=== PATIENT | female | born 1955 | race Hispanic/Latino ===

== ENCOUNTER → 2017-02-26 | Outpatient (CLI) | payer MEDICARE ==
[~2017-02-26] MED LIST: GADOBENATE DIMEGLUMINE 20 ML IV ONE; INUL1TAB4 PO; LEVO25TA54 PO; MULT-1192 PO
== END | disposition home or self-care (01) ==
LOC: RAH 07:59
PROVIDERS: ATTEND Family Medicine
DX: M48.02 Spinal stenosis, cervical region (principal); M50.022 Cervical disc disorder at C5-C6 level with myelopathy; M25.78 Osteophyte, vertebrae
CPT/HCPCS: 72156; A9577

== ENCOUNTER → 2017-06-23 | Outpatient (CLI) | payer MEDICARE ==
[~2017-06-23] MED LIST changes: -GADOBENATE DIMEGLUMINE 20 ML IV ONE
== END | disposition home or self-care (01) ==
LOC: RAH 14:59
PROVIDERS: ATTEND Family Medicine
DX: Z12.31 Encounter for screening mammogram for malignant neoplasm of breast (principal)
CPT/HCPCS: 77067

== ENCOUNTER → 2017-07-29 | Outpatient (CLI) | payer MEDICARE | END | disposition home or self-care (01) | LOC: RAH 11:51 | PROVIDERS: ATTEND Family Medicine | DX: M47.815 Spondylosis without myelopathy or radiculopathy, thoracolumbar region (principal); R91.8 Other nonspecific abnormal finding of lung field; I51.7 Cardiomegaly | CPT/HCPCS: 71046 ==

== ENCOUNTER → 2018-06-24 | Outpatient (CLI) | payer MEDICARE | END | disposition home or self-care (01) | LOC: RAH 09:24 | PROVIDERS: ATTEND Family Medicine | DX: Z12.31 Encounter for screening mammogram for malignant neoplasm of breast (principal) | CPT/HCPCS: 77067 ==

== ENCOUNTER → 2018-09-19 | Outpatient (CLI) | payer MEDICARE | END | disposition home or self-care (01) | LOC: RAH 11:27 | PROVIDERS: ATTEND Family Medicine | DX: M17.11 Unilateral primary osteoarthritis, right knee (principal) | CPT/HCPCS: 73560 ==

== ENCOUNTER → 2020-07-01 | Outpatient (CLI) | payer MEDICARE, OTHER | END | disposition home or self-care (01) | LOC: RAH 11:54 | PROVIDERS: ATTEND Family Medicine | DX: Z12.31 Encounter for screening mammogram for malignant neoplasm of breast (principal) | CPT/HCPCS: 77067 ==

== ENCOUNTER → 2021-07-02 | Outpatient (CLI) | payer MEDICARE | END | disposition home or self-care (01) | LOC: RAH 10:21 | PROVIDERS: ATTEND Family Medicine | DX: Z12.31 Encounter for screening mammogram for malignant neoplasm of breast (principal) | CPT/HCPCS: 77067 ==

== ENCOUNTER → 2022-05-07 | Outpatient (CLI) | payer MEDICARE | END | disposition home or self-care (01) | LOC: SHCH 10:33 | PROVIDERS: ATTEND Student in an Organized Health Care Education/Training Program | DX: R06.02 Shortness of breath (principal) | CPT/HCPCS: 93306 ==

== ENCOUNTER → 2022-05-26 | Outpatient (CLI) | payer MEDICARE ==
[2022-05-26 15:04] LABS: ALBUMIN 3.9 g/dL (3.5-5.0); CREATININE 0.8 mg/dL (0.5-1.5); POTASSIUM 4.1 mmol/L (3.5-5.1)
== END | disposition home or self-care (01) ==
LOC: LAB 14:09
PROVIDERS: ATTEND Student in an Organized Health Care Education/Training Program
DX: R06.09 Other forms of dyspnea (principal)
CPT/HCPCS: 36415; 80053

== ENCOUNTER → 2022-06-01 | Outpatient (CLI) | payer MEDICARE ==
[~2022-06-01] MED LIST changes: +IOHEXOL 350 MG/ML 100ML INFUS..BTL IV ONE; +METOPROLOL TARTRATE 1 MG/ML 5ML VIAL IV ONE
== END | disposition home or self-care (01) ==
LOC: RAH 10:38
PROVIDERS: ATTEND Student in an Organized Health Care Education/Training Program
DX: I50.9 Heart failure, unspecified (principal)
CPT/HCPCS: 75574; J3490; Q9967

== ENCOUNTER → 2022-07-03 | Outpatient (CLI) | payer MEDICARE ==
[~2022-07-03] MED LIST changes: -IOHEXOL 350 MG/ML 100ML INFUS..BTL IV ONE; -METOPROLOL TARTRATE 1 MG/ML 5ML VIAL IV ONE
== END | disposition home or self-care (01) ==
LOC: RAH 08:25
PROVIDERS: ATTEND Physician Assistant Medical
DX: Z12.31 Encounter for screening mammogram for malignant neoplasm of breast (principal)
CPT/HCPCS: 77067

== ENCOUNTER → 2023-07-05 | Outpatient (CLI) | payer MEDICARE | END | disposition home or self-care (01) | LOC: RAH 13:18 | PROVIDERS: ATTEND Physician Assistant Medical | DX: Z12.31 Encounter for screening mammogram for malignant neoplasm of breast (principal); R92.323 Mammographic fibroglandular density, bilateral breasts | CPT/HCPCS: 77067 ==

== ENCOUNTER → 2024-05-10 | Outpatient (CLI) | payer MEDICARE ==
--- NOTE | 2024-05-10 14:30 | HMCIMG ---
MRI RIGHT KNEE WITHOUT CONTRAST INDICATION: Right knee pain. COMPARISON: None. TECHNIQUE: Long and short axis fat and water weighted sequences were obtained through the right knee. FINDINGS: 2.0 cm long complex trizonal high signal abnormality courses through the medial meniscal body, and medial meniscal insufficiency-related full-thickness chondral loss noted along the weightbearing surfaces of the medial femoral condyle with sparing far laterally. No significant subchondral erosion formation at this juncture. Pseudoextrusion of the medial meniscal body contributing to mild medial bowing of an otherwise intact medial collateral ligament. All of these findings may be due to chronic repetitive varus stress. No evidence for subcortical fracture at this juncture. Lateral meniscus is intact. No significant lateral femorotibial weightbearing chondromalacia. Cruciate ligaments are intact. Collateral ligaments appear unremarkable. Popliteus tendon is well maintained. Moderate tricompartmental right knee osteoarthropathy includes and moderate to severe medial compartment joint space narrowing, remodeling and related flattening of the and medial femoral condylar weightbearing surface, remodeling of the remainder of the articular surfaces, mild medial shift of the right femur in relationship to the right tibia by a few millimeters, and mild to moderate marginal osteophyte formation without any significant medial tibial plateau downsloping at this juncture. Subcentimeter spur arising off the lateral femoral condyle contributes to mild mass effect upon the lateral fibers of the anterior cruciate ligament. No significant patellofemoral chondromalacia. Trochlear groove is well formed. Patella is not subluxed. Medial and lateral retinaculum appear unremarkable. Extensor mechanism is intact. Hoffa's fat pad is well preserved. No prepatellar soft tissue swelling or bursitis identified. No patellar plical thickening detected. Very trace joint fluid. No abnormal soft tissue mass, ganglion, or Bolivar's cyst is present. No evidence for fracture. IMPRESSION: 1. 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 2. ACL impingement Moderate tricompartmental right knee osteoarthropathy, including secondary mild ACL impingement. 3. Very trace joint fluid.
--- NOTE | 2024-05-10 14:44 | HMCIMG ---
MRI LEFT KNEE WITHOUT CONTRAST INDICATION: Left knee pain. COMPARISON: None. TECHNIQUE: Long and short axis fat and water weighted sequences were obtained through the left knee. FINDINGS: Coalescent intrasubstance high signal within the medial meniscal body without surfacing. Generalized partial thickness chondral degeneration/fraying/loss along the weightbearing surfaces of the medial compartment. Lateral meniscus is intact. No significant lateral femorotibial weightbearing chondromalacia. Cruciate ligaments are intact. Collateral ligaments appear unremarkable. Popliteus tendon is well maintained. Mild tricompartmental left knee osteoarthropathy is most pronounced along the medial compartment, and includes remodeling of the articular surfaces, joint space narrowing, and mild marginal osteophyte formation. Mild fibrovascular osseous stress reaction noted along the medial tibial plateau rim and corresponding medial femoral condylar rim. Subcentimeter traction-related subcortical degenerative signal alteration along the midline tibial plateau subjacent to the distal anterior cruciate ligament attachment. Subcentimeter spurring arising off the lateral femoral condyle contributing to mild mass effect upon the lateral fibers of the anterior cruciate ligament. No significant patellofemoral chondromalacia. Miniscule blunt end spur arises off the medial patellar facet. Trochlear groove is well formed. Patella is not subluxed. Medial and lateral retinaculum appear unremarkable. Extensor mechanism is intact. Hoffa's fat pad is well preserved. No prepatellar soft tissue swelling or bursitis identified. No patellar plical thickening detected. Trace joint fluid noted. No abnormal soft tissue mass, ganglion, or Bolivar's cyst is present. No evidence for fracture. IMPRESSION: 1. 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 2. Mild tricompartmental left knee osteoarthropathy and secondary mild ACL impingement without tear. 3. Trace joint fluid.
== END | disposition home or self-care (01) ==
LOC: RAH 12:42
PROVIDERS: ATTEND Neurological Surgery
DX: S83.241A Other tear of medial meniscus, current injury, right knee, initial encounter (principal); M17.11 Unilateral primary osteoarthritis, right knee; M25.862 Other specified joint disorders, left knee; M25.861 Other specified joint disorders, right knee; M25.562 Pain in left knee; M25.561 Pain in right knee; X58.XXXA Exposure to other specified factors, initial encounter; Y93.89 Activity, other specified; Y92.89 Other specified places as the place of occurrence of the external cause; Y99.8 Other external cause status
CPT/HCPCS: 73721

== ENCOUNTER → 2024-06-13 | Outpatient (CLI) | payer MEDICARE ==
--- NOTE | 2024-06-13 16:47 | HMCIMG ---
CHEST 2VWS HISTORY: Preop COMPARISON: 07/19/2017 FINDINGS: Frontal and lateral projections of the chest were obtained. Right basilar linear atelectasis changes are seen. There is no acute pulmonary infiltrates or failure. The heart is not enlarged. No evidence of aortic calcification is seen. Degenerative changes are seen of the thoracolumbar spine. IMPRESSION: 1. No acute pulmonary infiltrates.
== END | disposition home or self-care (01) ==
LOC: RAH 11:50
PROVIDERS: ATTEND Physician Assistant
DX: Z01.818 Encounter for other preprocedural examination (principal); J98.11 Atelectasis; M47.815 Spondylosis without myelopathy or radiculopathy, thoracolumbar region; M17.11 Unilateral primary osteoarthritis, right knee
CPT/HCPCS: 71046

== ENCOUNTER → 2024-07-05 | Outpatient (CLI) | payer MEDICARE ==
--- NOTE | 2024-07-05 10:35 | HMCIMG ---
MAMMO SCREENING BILATERAL HISTORY: Screening mammogram. COMPARISON: 07/05/2023 TECHNIQUE: Bilateral screening mammogram with CAD was performed with craniocaudal and mediolateral oblique projections. FINDINGS: There are scattered areas of fibroglandular density. There is no evidence of a dominant mass, or suspicious microcalcification. There is no evidence of nipple retraction or skin thickening. IMPRESSION: 1. Stable mammogram. Patient was entered into a reminder system with a target due date for their next mammogram. BI-RADS: CATEGORY 2: BENIGN FINDINGS Recommend monthly self breast exam as well as annual clinical examination. A negative x-ray should not delay biopsy if a dominant or clinically suspicious mass is present, since 8-10% of cancers are not identified by mammography. Dense breasts particularly, may obscure an underlying neoplasm. Some of these may be detected clinically and therefore, clinical examination is an essential part of breast evaluation.
== END | disposition home or self-care (01) ==
LOC: RAH 09:35
PROVIDERS: ATTEND Obstetrics & Gynecology
DX: Z12.31 Encounter for screening mammogram for malignant neoplasm of breast (principal); R92.323 Mammographic fibroglandular density, bilateral breasts
CPT/HCPCS: 77067

== ENCOUNTER → 2024-09-05 | Outpatient (CLI) | payer MEDICARE ==
--- NOTE | 2024-09-05 18:00 | HMCIMG ---
EXAM: XR RIGHT FOOT, 3 Views. CLINICAL HISTORY: 69-year-old female with right foot pain. COMPARISON: None provided. FINDINGS: BONES: No acute fracture or focal osseous lesion. Inferior calcaneal spur. JOINTS: No dislocation. The joint spaces are normal. SOFT TISSUES: The soft tissues are unremarkable. IMPRESSION: 1. Inferior calcaneal spur. /[place]
--- NOTE | 2024-09-05 18:01 | HMCIMG ---
EXAM: XR Left Foot, 3 Views. CLINICAL HISTORY: 69-year-old female with left foot pain. COMPARISON: None provided. FINDINGS: BONES: Posterior and inferior calcaneal spurs. JOINTS: No dislocation. The joint spaces are normal. SOFT TISSUES: The soft tissues are unremarkable. IMPRESSION: 1. No acute osseous abnormality. 2. Posterior and inferior calcaneal spurs. /[place]
== END | disposition home or self-care (01) ==
LOC: RAH 15:56
PROVIDERS: ATTEND Physician Assistant
DX: M77.31 Calcaneal spur, right foot (principal); M77.32 Calcaneal spur, left foot; M79.671 Pain in right foot; M79.672 Pain in left foot
CPT/HCPCS: 73630

== ENCOUNTER → 2024-10-17 | Outpatient (CLI) | payer MEDICARE ==
--- NOTE | 2024-10-18 08:01 | HMCIMG ---
CLINICAL INDICATION: Age-related osteoporosis without current pathological fracture COMPARISON: None available TECHNIQUE: Bone densitometry is performed of the lumbar spine and left hip. FINDINGS: Total BMD of lumbar spine is 0.893 g/cm2 with a T-score of -1.4 and Z-score is 0.7. Total BMD of left hip is 0.924 g/cm2 with a T-score of -0.3 and Z-score is 1.2. FRAX SCORE: The 10 year fracture risk for a major osteoporotic fracture and hip fracture not reported due to treated for osteoporosis IMPRESSION: 1. Osteopenia of left hip and lumbar spine 2. I would recommend follow-up in 13 months World Health Organization criteria for BMD interpretation classify patients as Normal (T-score at or above -1.0), Osteopenic (T-score between -1.0 and -2.5), or Osteoporotic (T-score at or below -2.5). FRAX SCORE: A. All treatment decisions require clinical judgment and consideration of individual patient factors, including patient preferences, comorbidities, previous drug use, risk factors not captured in the FRAX model (e.g., frailty, falls, vitamin D deficiency, increased bone turnover, interval significant decline in bone density) and possible [id number]-estimation of fracture risk by FRAX. B. In addition, the NOF Guide recommends that FDA-approved medical therapies be considered in postmenopausal women and men age greater than or equal to 50 years with a: i. Hip or vertebral (clinical or morphometric) fracture. ii. T-score of less than or equal to -2.5 at the spine or hip. iii. Ten-year fracture probability by FRAX of greater than or equal to 3% for hip fracture of greater than or equal to 20% for major osteoporotic fracture.
== END | disposition home or self-care (01) ==
LOC: RAH 09:41
PROVIDERS: ATTEND Physician Assistant
DX: M85.89 Other specified disorders of bone density and structure, multiple sites (principal); M81.0 Age-related osteoporosis without current pathological fracture
CPT/HCPCS: 77080